=== PATIENT | female | born 2000 | race Caucasian/White ===

== ENCOUNTER 2024-05-25 14:14 | Emergency (ER) | payer MEDICAID | END 2024-05-25 15:03 | disposition left against medical advice (07) | LOC: ER 14:24 | DX: Z53.21 Procedure and treatment not carried out due to patient leaving prior to being seen by health care provider (principal) ==

== ENCOUNTER 2024-05-25 15:57 | Emergency (ER) | payer MEDICAID ==
[~2024-05-25] VITALS: Ht 165.1 cm; Wt 49.9 kg
[2024-05-25 16:12] VITALS: BP 107/71; TEMP 98; O2SAT 99
[2024-05-25] MEDS ORDERED: ACETAMINOPHEN 325 MG TABLET ONE (16:28)
[2024-05-25] MEDS: ACETAMINOPHEN 325 MG TABLET PO ONE (16:30)
== END 2024-05-25 19:50 | disposition left against medical advice (07) ==
LOC: ER 16:08
DX: M79.644 Pain in right finger(s) (principal); E10.9 Type 1 diabetes mellitus without complications; Z79.4 Long term (current) use of insulin
CPT/HCPCS: 73130-TC